=== PATIENT | male | born 1970 | race African-American/Black ===

== ENCOUNTER 2017-05-13 14:19 | Emergency (ER) | payer SELFPAY ==
[~2017-05-13] VITALS: Ht 165.1 cm; Wt 83.9 kg
[~2017-05-13 14:19] MED LIST: POLY3.5O LEFT EYE
[2017-05-13 14:30] VITALS: BP 133/83; PULSE 77; RESP 16; TEMP 98.2; O2SAT 98
[2017-05-13] MEDS ORDERED: IBUP1TAB7 PO (15:12)
[2017-05-13] MEDS ORDERED: CYCL10TA PO (15:12)
--- NOTE | 2017-05-13 15:12 | PD ---
HPI Chief Complaint: Musculoskeletal Complaint Time Seen by Provider: 15:13 Travel History International Travel<30 days: No Contact w/Intl Traveler<30days: No Traveled to known affect area: No History of Present Illness HPI 46-year-old male here with upper back and neck pain times one day. He denies injury or trauma. He denies fever or chills. He denies headache. PFSH Past Medical History Diminished Hearing: No GERD: Yes Influenza Vaccination: No ?: Not Social History Alcohol Use: Yes (OCC) Tobacco Use: Yes (06/05 PPD) Substance Use: No Allergies-Medications (Allergen,Severity, Reaction): Coded Allergies: No Known Allergies (Unverified Adverse Reaction, Unknown, 05/13/17) Reported Meds & Prescriptions Reported Meds & Active Scripts Active Flexeril (Cyclobenzaprine HCl) 10 Mg Tab 10 Mg PO TID Ibuprofen 800 Mg Tab 800 Mg PO Q6HR PRN Physical Exam Narrative GENERAL: Alert male no distress. SKIN: Warm and dry. HEAD: Normocephalic. EYES: No scleral icterus. No injection or drainage. NECK: Supple, trachea midline. No lymphadenopathy. No cervical midline tenderness. No nuchal rigidity. Bilateral trapezius muscle spasm CARDIOVASCULAR: Regular rate and rhythm without murmurs, gallops, or rubs. RESPIRATORY: Breath sounds equal bilaterally. No accessory muscle use. Data Data Last Documented VS Vital Signs Date Time Temp Pulse Resp B/P (MAP) Pulse Ox O2 Delivery O2 Flow Rate FiO2 05/13/17 14:30 98.2 77 16 133/83 (100) 98 MDM Medical Decision Making Medical Screen Exam Complete: Yes Emergency Medical Condition: Yes Differential Diagnosis Neck strain, trapezius muscle spasm Narrative Course 46-year-old male here with upper back and neck pain times one day. He denies injury or trauma. He denies fever or chills. He denies headache. On exam he has bilateral trapezius muscle stiffness and spasm. He'll be treated for upper back strain. Diagnosis Primary Impression: Upper back strain Qualified Codes: S29.012A - Strain of muscle and tendon of back wall of thorax , initial encounter Referrals: [facility] Cyclobenzaprine (Flexeril) 10 Mg Tab 10 MG PO TID for Muscle Spasm, #12 TAB 0 Refills Prov: Aileen Main [employer] 05/13/17 Ibuprofen (Ibuprofen) 800 Mg Tab 800 MG PO Q6HR Y for PAIN, #40 TAB 0 Refills Prov: Aileen Main 05/13/17 Disposition: 01 DISCHARGE HOME Condition: Stable Aileen Main May 13, 2017 15:12
== END 2017-05-13 15:26 | disposition home or self-care (01) ==
LOC: PHEFT 14:19
DX: S29.012A Strain of muscle and tendon of back wall of thorax, initial encounter (principal); X58.XXXA Exposure to other specified factors, initial encounter
CPT/HCPCS: 99283